=== PATIENT | male | born 1995 | race Caucasian/White ===

== ENCOUNTER 2020-08-27 12:18 | Emergency (ER) | payer BC ==
--- NOTE | 2020-08-27 13:04 | EDM.PDOC ---
ED HPI GENERAL MEDICAL PROBLEM - General Chief Complaint: Gastrointestinal Problem Stated Complaint: VOMITING BLOOD/BLOOD IN STOOL Time Seen by Provider: 08/27/20 13:04 - History of Present Illness INITIAL COMMENTS - FREE TEXT/NARRATIVE: 24-year-old male presents the emergency room with vomiting coffee-ground dark emesis. This is been going on for about a year. Almost every day when he gets up he vomits up a small amount of coffee-ground like emesis. On occasion he awakens with some reflux symptoms in the middle the night. He also has noticed some bright red blood in his stool. His stool by history is described as normal but sometimes has some red streaking on it. The patient's mother found out about all this today and brought him in for evaluation. She adds that he is looking more pale than normal and she has been concerned for a long time that something is been going on. Does not drink or use drugs. However, he smokes. We discussed the importance of quitting cigarette smoking at this time. The patient does have some abdominal discomfort at times he describes it as being left upper abdominal radiating towards the mid upper abdominal area. The patient takes his Keppra as prescribed, he saw his neurologist back in March and is not having any problems with this issue at this time patient is not using any other routine medications. Specifically the patient is not using any nonsteroidal anti-inflammatory medications at this time. Abdominal Pain Score (Numeric/FACES): 1 - Related Data Allergies Allergy/AdvReac Type Severity Reaction Status Date / Time No Known Allergies Allergy Verified 04/26/14 22:40 Home Meds: Home Meds levETIRAcetam [Keppra] 1,000 mg PO BID 04/26/14 [History] Omeprazole 40 mg PO DAILY #30 capsule. 08/27/20 [Rx] Sucralfate [Carafate] 1 gm PO ACBED #40 tab 08/27/20 [Rx] ED ROS GENERAL - Review of Systems Review Of Systems: See Below Constitutional: Reports: No Symptoms HEENT: Reports: No Symptoms Respiratory: Reports: No Symptoms Cardiovascular: Reports: No Symptoms Endocrine: Reports: No Symptoms GI/Abdominal: Reports: Abdominal Pain, Bloody Stool, Hematemesis, Vomiting. Denies: Melena, Nausea : Reports: No Symptoms Musculoskeletal: Reports: No Symptoms Skin: Reports: No Symptoms Neurological: Reports: No Symptoms ED EXAM, GI/ABD - Physical Exam Exam: See Below Exam Limited By: No Limitations General Appearance: Alert, No Apparent Distress, Other (He might be a little pale vital signs are stable) Eyes: Bilateral: Normal Appearance Ears: Normal External Exam, Normal Canal, Hearing Grossly Normal, Normal TMs Nose: Normal Inspection, Normal Mucosa, No Blood Throat/Mouth: Normal Inspection, Normal Lips, Normal Teeth, Normal Gums, Normal Oropharynx, Normal Voice, No Airway Compromise Head: Atraumatic, Normocephalic Neck: Normal Inspection, Supple, Non-Tender, Full Range of Motion. No: Lymphadenopathy (L), Lymphadenopathy (R) Respiratory/Chest: No Respiratory Distress, Lungs Clear, Normal Breath Sounds Cardiovascular: Regular Rate, Rhythm, No Edema, No Murmur GI/Abdominal Exam: Normal Bowel Sounds, Soft, Tender (Normal tenderness midepigastric and left upper quadrant no other tenderness rebound rigidity or guarding noted), Other Rectal (Males) Exam: Normal Exam, Heme + Stool (Normal colored stool). No: Hemorrhoids Back Exam: Normal Inspection. No: CVA Tenderness (L), CVA Tenderness (R) Extremities: Normal Inspection, No Pedal Edema Neurological: Alert, Oriented, Normal Cognition Course - Vital Signs Last Recorded V/S: Last Vital Signs Temp 36.1 C 08/27/20 13:06 Pulse 57 L 08/27/20 13:06 Resp 16 08/27/20 13:06 BP 113/71 08/27/20 13:06 Pulse Ox 99 08/27/20 13:06 - Orders/Labs/Meds Labs: Laboratory Tests 08/27/20 08/27/20 08/27/20 Range/Units 14:05 14:05 14:05 WBC 7.10 (4.23-9.07) K/mm3 RBC 4.73 (4.63-6.08) M/mm3 Hgb 14.5 (13.7-17.5) gm/dl Hct 41.8 (40.1-51.0) % MCV 88.4 (79.0-92.2) fl MCH 30.7 (25.7-32.2) pg MCHC 34.7 (32.2-35.5) g/dl RDW Std Deviation 40.6 (35.1-43.9) fL Plt Count 255 (163-337) K/mm3 MPV 9.8 (9.4-12.3) fl Neut % (Auto) 59.5 (34.0-67.9) % Lymph % (Auto) 32.8 (21.8-53.1) % [place] % (Auto) 7.2 (5.3-12.2) % Eos % (Auto) 0.4 L (0.8-7.0) Baso % (Auto) 0.1 (0.1-1.2) % Neut # (Auto) 4.22 (1.78-5.38) K/mm3 Lymph # (Auto) 2.33 (1.32-3.57) K/mm3 [place] # (Auto) 0.51 (0.30-0.82) K/mm3 Eos # (Auto) 0.03 L (0.04-0.54) K/mm3 Baso # (Auto) 0.01 (0.01-0.08) K/mm3 PT 11.5 (9.7-12.0) SECONDS INR 1.08 APTT 27.3 (21.7-31.4) SECONDS Sodium 139 (136-145) mEq/L Potassium 4.2 (3.5-5.1) mEq/L Chloride 105 (98-107) mEq/L Carbon Dioxide 28 (21-32) mEq/L Anion Gap 10.2 (5-15) BUN 10 (7-18) mg/dL Creatinine 1.0 (0.7-1.3) mg/dL Est Cr Clr Drug Dosing 89.29 mL/min Estimated GFR (MDRD) > 60 (>60) mL/min BUN/Creatinine Ratio 10.0 L (14-18) Glucose 86 (74-106) mg/dL Calcium 9.0 (8.5-10.1) mg/dL Total Bilirubin 0.9 (0.2-1.0) mg/dL AST 24 (15-37) U/L ALT 26 (16-63) U/L Alkaline Phosphatase 68 (46-116) U/L Total Protein 7.2 (6.4-8.2) g/dl Albumin 4.1 (3.4-5.0) g/dl Globulin 3.1 gm/dL Albumin/Globulin Ratio 1.3 (1-2) Meds: Medications Discontinued Medications Generic Name Dose Route Start Last Admin Trade Name Janelle PRN Reason Stop Dose Admin Pantoprazole Sodium 40 mg 08/27/20 13:51 08/27/20 14:06 Pantoprazole 40 Mg Vial IVPUSH 08/27/20 13:52 40 mg ONETIME ONE Administration - Re-Assessments/Exams Free Text/Narrative Re-Assessment/Exam: 08/27/20 15:35 Patient's labs look assuring at this point. I discussed situation with the patient's and the patient's mother. Offered hospital observation versus treatment at home he would like to be treated at home. Given the chronicity of the situation. Over 1 year. I discussed the situation with Dr. Lassiter, on- call surgeon and believe with the chronicity here the patient should have an EGD done. His rectal bleeding is probably incidental to the whole situation and related to rectal irritation. He is got no obvious hemorrhoids on exam at this time. And no fissure noted. However his stool albeit normal color is Hemoccult positive. Did discuss the situation with Dr. Lassiter will be happy to see the patient within the next week or so. She will be treated with Protonix daily and Carafate for 10 days. Departure - Departure Time of Disposition: 15:37 Disposition: Home, Self-Care 01 Clinical Impression: GI (gastrointestinal bleed) - Discharge Information Referrals: PCP,None [Ordering Only Provider] - Akbar Lassiter MD [Physician] - Forms: ED Department Discharge Additional Instructions: Return to the emergency room with any questions problems or worsening symptoms. Follow-up with Dr. Lassiter either later this week or early next week. He is the general surgeon and he is anticipating seeing you in the near future. You have been started on 2 medications the first 1 is omeprazole 40 mg this is very similar to what you received through the IV here in the emergency room. He take this once daily 30 to 60 minutes prior to your midday meal. You have also been started on Carafate or sucralfate. This helps coat the inside of your stomach. This should be taken just before each meal and at bedtime since you do not eat breakfast take 1 around 730 or 8:00 every morning. While taking the sucralfate be certain to take your omeprazole 60 minutes prior to your midday dose.. After you are done taking the sucralfate 30 to 60 minutes before your midday meal will be adequate. Please consider quitting smoking. Sepsis Event Note (ED) - Focused Exam Vital Signs: Vital Signs Temp Pulse Resp BP Pulse Ox 08/27/20 13:06 36.1 C 57 L 16 113/71 99
[2020-08-27] MEDS ORDERED: Pantoprazole 40 MG Vial IVPUSH ONE (13:51)
== END 2020-08-27 15:45 | disposition home or self-care (01) ==
LOC: SUPCPDRO 12:18 → JD.ED 12:18
DX: K92.2 Gastrointestinal hemorrhage, unspecified (principal); Z79.899 Other long term (current) drug therapy
CPT/HCPCS: 36415; 80053; 85025; 85610; 85730; 96374; 99284; C9113

== ENCOUNTER 2020-09-04 09:11 | Day surgery (SDC) | payer BC ==
[~2020-09-04 09:11] MED LIST: Lactated Ringers 1,000 ML IV SCH; Lidocaine 1%/Sod Bicarbonate in NS 8.4% 1 ML Syringe IDERM PRN; Sodium Chloride 0.9% 10 ML Syringe FLUSH PRN
--- NOTE | 2020-09-04 09:43 | PCM.PREANE ---
Preanesthetic Assessment - Procedure Proposed Procedure: EGD - Anesthesia/Transfusion/Family Hx Anesthesia History: Prior Anesthesia Without Reaction Family History of Anesthesia Reaction: No Transfusion History: No Prior Transfusion(s) Intubation History: Unknown (denies ) - Review of Systems General: No Symptoms Pulmonary: No Symptoms Cardiovascular: No Symptoms Gastrointestinal: Other (GERD, chronic nausea/vomitting - 1 year ) - Physical Assessment NPO Status Date: 09/03/20 NPO Status Time: 23:30 Height: 1.75 m Weight: 54.885 kg ASA Class: 2 Mental Status: Alert & Oriented x3 Airway Class: Mallampati = 1 Dentition: Reports: Normal Dentition Thyro-Mental Finger Breadths: 3 Mouth Opening Finger Breadths: 4 ROM/Head Extension: Full Lungs: Clear to Auscultation, Normal Respiratory Effort Cardiovascular: Regular Rate, Regular Rhythm - Allergies Allergies/Adverse Reactions: Allergies Allergy/AdvReac Type Severity Reaction Status Date / Time No Known Allergies Allergy Verified 09/02/20 14:20 - Blood Blood Available: No - Anesthesia Plan Pre-Op Medication Ordered: None - Acknowledgements Anesthesia Type Planned: MAC Pt an Appropriate Candidate for the Planned Anesthesia: Yes Alternatives and Risks of Anesthesia Discussed w Pt/Guardian: Yes Pt/Guardian Understands and Agrees with Anesthesia Plan: Yes PreAnesthesia Questionnaire HEENT History: Reports: Impaired Vision, Other (See Below) Other HEENT History: wears glasses/contacts Cardiovascular History: Reports: None Respiratory History: Reports: None Gastrointestinal History: Reports: GERD, Hemorrhoids Genitourinary History: Reports: None 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 Musculoskeletal History: Reports: None Neurological History: Reports: Seizure Psychiatric History: Reports: None Endocrine/Metabolic History: Reports: None Hematologic History: Reports: None Immunologic History: Reports: None Oncologic (Cancer) History: Reports: None Dermatologic History: Reports: None - Infectious Disease History Infectious Disease History: Reports: None - Past Surgical History Head Surgeries/Procedures: Reports: None Cardiovascular Surgical History: Reports: None Respiratory Surgical History: Reports: None GI Surgical History: Reports: None Female Surgical History: Reports: None Male Surgical History: Reports: None Endocrine Surgical History: Reports: None Other Neurological Surgeries/Procedures: last seizure was in 2018 Musculoskeletal Surgical History: Reports: None Oncologic Surgical History: Reports: None Dermatological Surgical History: Reports: None - SUBSTANCE USE Tobacco Use Status *Q: Current Every Day Tobacco User Recreational Drug Use History: Yes Recreational Drug Type: Reports: Marijuana/Hashish - HOME MEDS Home Medications: Home Meds levETIRAcetam [Keppra] 1,000 mg PO BID 04/26/14 [History] Omeprazole 40 mg PO DAILY #30 capsule. 08/27/20 [Rx] - CURRENT (IN HOUSE) MEDS Current Meds: Current Medications Lactated Ringer's (Ringers, Lactated) 1,000 mls @ 125 mls/hr IV ASDIRECTED YANI Stop: 09/04/20 23:00 Lidocaine/Sodium Bicarbonate (Lidocaine 1%/Sod Bicarbonate In Ns 8.4% 1 Ml Syringe) 0.25 ml IDERM ONETIME PRN PRN Reason: Prior to IV Start Stop: 09/04/20 18:00 Sodium Chloride (Sodium Chloride 0.9% 10 Ml Syringe) 10 ml FLUSH ASDIRECTED PRN PRN Reason: Keep Vein Open Stop: 09/04/20 18:00
[2020-09-04] MEDS ORDERED: Propofol 200 MG/20 ML SDV ONE ×2 (09:58→10:38)
[2020-09-04] MEDS ORDERED: Lidocaine 1% 4 ML ONE (09:59)
--- NOTE | 2020-09-04 10:54 | PCM.PRNOTE ---
- Free Text/Narrative Note: Date: 09/04/2020 Procedure: diagnostic esophagogastroduodenoscopy Indication: dysphagia, regurgitation, vomiting Endoscopist: Akbar Lassiter MD Findings: exudate within esophagus and stomach without ulceration. Gross appearance of feline esophagus. Detailed Report: The patient was taken to the endoscopy suite and placed in left lateral decubitus position. Timeout was performed and monitored anesthesia care was initiated. A bite-block was placed. The endoscope was inserted into the mouth and advanced to the distal duodenum with ease. Duodenal mucosa appeared normal. Sample biopsies were obtained with cold forceps. The scope was withdrawn into the distal stomach. The antrum of the stomach appeared normal. There was some whitish exudate in the mid body of the stomach that washed off with irrigation. There is no underlying inflammation or ulceration. A biopsy of the antral mucosa was obtained. The incisura appeared normal. No hiatal hernia was appreciated. The scope was withdrawn into the distal esophagus. There was minor inflammatory change in the distal esophagus. Biopsies were obtained of distal esophageal mucosa. At 1 point, circular folds along the esophagus had the appearance of feline esophagus suggesting possible eosinophilic esophagitis. Air was suctioned prior to to withdrawal of the scope from the stomach and esophagus. The patient tolerated the procedure well.
--- NOTE | 2020-09-04 11:08 | PCM48HPAN ---
Post Anesthesia Note - EVALUATION WITHIN 48HRS OF ANESTHETIC Vital Signs in Normal Range: Yes Patient Participated in Evaluation: Yes Respiratory Function Stable: Yes Airway Patent: Yes Cardiovascular Function Stable: Yes Hydration Status Stable: Yes Pain Control Satisfactory: Yes Nausea and Vomiting Control Satisfactory: Yes Mental Status Recovered: Yes Vital Signs: Last Vital Signs Temp 37.1 C 09/04/20 09:10 Pulse 46 L 09/04/20 09:10 Resp 16 09/04/20 09:10 BP 114/76 09/04/20 09:10 Pulse Ox 98 09/04/20 09:10
== END 2020-09-04 11:41 | disposition home or self-care (01) ==
LOC: JD.SDS 09:11
PROVIDERS: ATTEND Surgery
DX: K29.50 Unspecified chronic gastritis without bleeding (principal); K21.9 Gastro-esophageal reflux disease without esophagitis; K22.8 Other specified diseases of esophagus; K20.80 Other esophagitis without bleeding; L83 Acanthosis nigricans; G40.909 Epilepsy, unspecified, not intractable, without status epilepticus; F17.210 Nicotine dependence, cigarettes, uncomplicated; K64.9 Unspecified hemorrhoids; Z79.899 Other long term (current) drug therapy
CPT/HCPCS: 00731; J2704; J7120

== ENCOUNTER 2021-02-17 08:26 | Emergency (ER) | payer OTHER, BC ==
--- NOTE | 2021-02-17 10:16 | EDM.PDOC ---
ED HPI GENERAL MEDICAL PROBLEM - General Chief Complaint: Laceration Stated Complaint: RT HAND LAC Time Seen by Provider: 02/17/21 10:15 - History of Present Illness INITIAL COMMENTS - FREE TEXT/NARRATIVE: 25-year-old male presents the emergency room with a laceration to the distal end of his right middle finger. 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 Patient denies any other injury associated with this most unfortunate event. Patient believes his last tetanus shot was between [employer] and high school. 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 Musculoskeletal History: Reports: None Neurological History: Reports: Seizure Psychiatric History: Reports: None Endocrine/Metabolic History: Reports: None Hematologic History: Reports: None Immunologic History: Reports: None Oncologic (Cancer) History: Reports: None Dermatologic History: Reports: None - Infectious Disease History Infectious Disease History: Reports: None - Past Surgical History Cardiovascular Surgical History: Reports: None Respiratory Surgical History: Reports: None Male Surgical History: Reports: None Endocrine Surgical History: Reports: None Other Neurological Surgeries/Procedures: last seizure was in 2018 Oncologic Surgical History: Reports: None Social & Family History - Tobacco Use Tobacco Use Status *Q: Current Every Day Tobacco User Years of Tobacco use: 7 Packs/Tins Daily: 1 - Caffeine Use Caffeine Use: Reports: Soda - Recreational Drug Use Recreational Drug Use: No ED ROS GENERAL - Review of Systems Review Of Systems: See Below Constitutional: Reports: No Symptoms Respiratory: Reports: No Symptoms Cardiovascular: Reports: No Symptoms GI/Abdominal: Reports: No Symptoms : Reports: No Symptoms Musculoskeletal: Reports: No Symptoms Neurological: Reports: No Symptoms ED EXAM, SKIN/RASH Exam: See Below Exam Limited By: No Limitations General Appearance: Alert, No Apparent Distress Head: Atraumatic, Normocephalic Neck: Normal Inspection, Supple, Non-Tender, Full Range of Motion Respiratory/Chest: No Respiratory Distress, Lungs Clear, Normal Breath Sounds Cardiovascular: Regular Rate, Rhythm, No Edema, No Murmur Extremities: Other (Examination of his right middle finger there is a nearly 2 cm curvilinear laceration over the palmar distal tuft no nail involvement neurovascular status normal tendon function normal) ED SKIN PROCEDURES - Laceration/Wound Repair Right Digit - 3rd (Middle) Appearance: Subcutaneous, Other (Curved flap with the apex distal) Distal NVT: Neuro & Vascular Intact Anesthetic Type: Digital Local Anesthesia - Lidocaine (Xylocaine): 1% Plain Local Anesthetic Volume: 2cc Skin Prep: Saline Exploration/Debridement/Repair: Wound Explored, In a Bloodless Field, Explored to Base Closed with: Sutures Lac/Wound length In cm: 1.9 Suture Size: 4-0 # of Sutures: 6 Suture Type: Nylon Tetanus Status Addressed: Yes (This was brought up to date) Complications: No Course - Vital Signs Last Recorded V/S: Last Vital Signs Temp 36.4 C 02/17/21 08:53 Pulse 69 02/17/21 08:53 Resp 14 02/17/21 08:53 BP 116/78 02/17/21 08:53 Pulse Ox 98 02/17/21 08:53 - Orders/Labs/Meds Orders: Active Orders 24 hr Category Date Time Status Vaccine to be Administered/Admin Charge [RC] ASDIRECTED Care 02/17/21 10:24 Active Meds: Medications Discontinued Medications Generic Name Dose Route Start Last Admin Trade Name Freq PRN Reason Stop Dose Admin Diphtheria/Tetanus/Acell Pertussis 0.5 ml 02/17/21 10:24 02/17/21 10:36 Diphtheria,Pertussis(Acell),Tetanus Vaccine 0.5 Ml Syringe IM 02/17/21 10:25 0.5 ml .ONCE ONE Administration Lidocaine HCl 10 ml 02/17/21 10:24 02/17/21 10:36 Lidocaine 1% 10 Ml Mdv INJECT 02/17/21 10:25 10 ml ONETIME ONE Administration Departure - Departure Time of Disposition: 11:39 Disposition: Home, Self-Care 01 Clinical Impression: Laceration of right middle finger - Discharge Information Referrals: PCP,None [Primary Care Provider] - Forms: ED Department Discharge Additional Instructions: Return to the emergency room with any questions problems or worsening symptoms. Keep the wound absolutely clean and dry for the next 48 hours. After 48 hours you can let water gently roll over the area but only for a few seconds, then gently dab dry. Continue to keep the wound clean and dry until it is completely healed. Return immediately to the emergency room if you get any drainage from the wound significant redness swelling or other concerns of infection. Suture removal in 10 to 12 days you can follow-up in the hospital clinic for this. Be very careful after the stitches are removed as your skin strength will still be minimal and it will tend to want to get caught on things so keeping a Band-Aid over the area is not a bad idea. Sepsis Event Note (ED) - Evaluation Sepsis Screening Result: No Definite Risk - Focused Exam Vital Signs: Vital Signs Temp Pulse Resp BP Pulse Ox 02/17/21 08:53 36.4 C 69 14 116/78 98 - My Orders Last 24 Hours: My Active Orders 02/17/21 10:24 Vaccine to be Administered/Admin Charge [RC] ASDIRECTED - Assessment/Plan Last 24 Hours: My Active Orders 02/17/21 10:24 Vaccine to be Administered/Admin Charge [RC] ASDIRECTED
[2021-02-17] MEDS ORDERED: Diphtheria,Pertussis(Acell),Tetanus Vaccine 0.5 ML Syringe IM ONE (10:24)
[2021-02-17] MEDS ORDERED: Lidocaine 1% 10 ML MDV INJECT ONE (10:24)
== END 2021-02-17 11:52 | disposition home or self-care (01) ==
LOC: JD.ED 08:26
DX: S61.212A Laceration without foreign body of right middle finger without damage to nail, initial encounter (principal); R56.9 Unspecified convulsions; Z72.0 Tobacco use; Z23 Encounter for immunization; Z79.899 Other long term (current) drug therapy; W23.0XXA Caught, crushed, jammed, or pinched between moving objects, initial encounter; Y92.89 Other specified places as the place of occurrence of the external cause; Y99.0 Civilian activity done for income or pay
CPT/HCPCS: 12001; 90471; 90715; 99282-25

== ENCOUNTER 2022-03-27 08:48 | Emergency (ER) | payer BC, OTHER ==
[2022-03-27] MEDS ORDERED: Ketorolac 30 MG/ML SDV IM ONE (09:40)
[2022-03-27] MEDS ORDERED: Amoxicillin/Clavulanate K 875-125 MG Tab PO ONE (09:40)
== END 2022-03-27 10:32 | disposition home or self-care (01) ==
LOC: JD.ED 08:48
DX: K04.7 Periapical abscess without sinus (principal); R56.9 Unspecified convulsions; Z79.899 Other long term (current) drug therapy
CPT/HCPCS: 96372; 99282; A9270; J1885